=== PATIENT | female | born 1990 | race Asian ===

== ENCOUNTER 2017-03-11 16:55 | Emergency (ER) | payer OTHER ==
[~2017-03-11] VITALS: Ht 149.9 cm; Wt 65.8 kg
[2017-03-11] MEDS ORDERED: AMOX875T PO (17:07)
--- NOTE | 2017-03-11 17:09 | PHYS DOC ---
Adult General Chief Complaint Chief Complaint: SORE THROAT HPI HPI Patient is a 26 year old female presents to the emergency department with a three-day history of sore throat, fever measured at 103. She is using over-the- counter Tylenol and Motrin without relief of symptoms. She denies nausea, vomiting, headache. Review of Systems Review of Systems Constitutional: Fever without chills Eyes: Denies change in visual acuity, redness, or eye pain [] HENT: Complain of sore throat Respiratory: Denies cough or shortness of breath [] Cardiovascular: No additional information not addressed in HPI [] GI: Denies abdominal pain, nausea, vomiting, bloody stools or diarrhea [] : Denies dysuria or hematuria [] Musculoskeletal: Denies back pain or joint pain [] Integument: Denies rash or skin lesions [] Neurologic: Denies headache, focal weakness or sensory changes [] Endocrine: Denies polyuria or polydipsia [] All other systems were reviewed and found to be within normal limits, except as documented in this note. Physical Exam Physical Exam Constitutional: Well developed, well nourished, no acute distress, non-toxic appearance. [] HENT: Normocephalic, atraumatic, bilateral external ears normal, oropharynx moist, posterior pharynx erythematous with exudate, uvula midline. Malodorous breath no oral exudates, nose normal. Voice is muffled [] Eyes: PERRLA, EOMI, conjunctiva normal, no discharge. [] Neck: Normal range of motion, no tenderness, supple, and her cervical lymphadenopathy, no stridor. [] Cardiovascular:Heart rate regular rhythm, no murmur [] Lungs & Thorax: Bilateral breath sounds clear to auscultation [] Skin: Warm, dry, no erythema, no rash. [] EKG EKG [] Radiology/Procedures Radiology/Procedures [] Course & Med Decision Making Course & Med Decision Making had recent strep exposure, fever, muffled voice, erythematous exudative posterior pharynx without anterior cervical lymphadenopathy. Plan will be to treat for strep pharyngitis. Pertinent Labs and Imaging studies reviewed. (See chart for details) [] Dragon Disclaimer Dragon Disclaimer This electronic medical record was generated, in whole or in part, using a voice recognition dictation system. Departure Departure Impression: Primary Impression: Strep pharyngitis Disposition: 01 HOME, SELF-CARE Condition: STABLE [facility]errals: [facility] Patient Instructions: Strep Throat Additional Instructions: Tylenol treated with Motrin [id number] as labeled and is indicated for symptom management. Salt water gargles. Scripts Amoxicillin (AMOXICILLIN) 875 Mg Tablet 1 TAB PO BID, #20 TAB Prov: DAE DODGE APRN 03/11/17 DAE DODGE APRN Mar 11, 2017 17:09
[2017-03-11 17:12] VITALS: BP 129/68
== END 2017-03-11 17:15 | disposition home or self-care (01) ==
LOC: ER 16:55
DX: J02.0 Streptococcal pharyngitis (principal)
CPT/HCPCS: 99283